=== PATIENT | male | born 1950 | race Hispanic/Latino ===

== ENCOUNTER 2018-08-23 06:07 | Observation (INO) | payer OTHER, MEDICARE ==
[2018-08-18 11:37] VITALS: BMI 31.5
[2018-08-23 07:03] LABS: BASO # 0.1 K/uL (0.0-0.2); BASO % 0.5 % (0.0-2.0); EOS # 0.2 K/uL (0.0-0.7); EOS % 1.5 % (0.0-4.0); HEMOGLOBIN 14.1 g/dL (12.0-18.0); LYMPH # 1.8 K/uL (1.0-4.3); LYMPH % 16.2 % (20.0-40.0); MEAN CELL VOLUME 94.1 fl (80.0-94.0); MEAN CORPUSCULAR HEMOGLOBIN 31.6 pg (27.0-31.0); MEAN CORPUSCULAR HGB CONC 33.6 g/dL (33.0-37.0); MONO # 0.8 K/uL (0.0-0.8); MONO % 7.3 % (0.0-10.0); NEUT # 8.3 K/uL (1.8-7.0); NEUT % 74.5 % (50.0-75.0); RBC 4.46 Mil/uL (4.40-5.90); RED CELL DISTRIBUTION WIDTH 14.1 % (11.5-14.5); WHITE BLOOD COUNT 11.2 K/uL (4.8-10.8)
[2018-08-23] MEDS ORDERED: Lactated Ringer's 1,000 ML IV ONE ×3 (07:20→14:00)
[2018-08-23] MEDS ORDERED: Rocuronium 10 mg/ml (5 ml) ONE ×2 (07:22→10:20)
[2018-08-23] MEDS ORDERED: Propofol 10 mg/ml Inj (20 ML) ONE ×10 (07:22→14:04)
[2018-08-23] MEDS ORDERED: Etomidate 20 mg/10ml Inj IV ONE (07:22)
[2018-08-23] MEDS ORDERED: Succinylcholine 200 mg/10 ml Inj IV ONE (07:22)
[2018-08-23] MEDS ORDERED: Lidocaine 4% (Laryng-O-Jet) Kit MM ONE (07:22)
[2018-08-23] MEDS ORDERED: Remifentanil 2 MG PDS IV ONE (07:33)
[2018-08-23] MEDS ORDERED: Phenylephrine 10 mg/ml Inj ONE (07:44)
[2018-08-23] MEDS ORDERED: methylPREDNISolone Depo 80 mg/ml Inj ONE (08:19)
[2018-08-23] MEDS ORDERED: Lidocaine 1% Inj (20ml) ONE (08:20)
[2018-08-23] MEDS ORDERED: Liquid Adhesive TOP ONE (08:20)
[2018-08-23] MEDS ORDERED: Absorbable Gelatin Sponge Size 12-7 ONE (08:20)
[2018-08-23] MEDS ORDERED: Bupivacaine HCl 0.25% PF (30 ml) Inj ONE (08:21)
[2018-08-23] MEDS ORDERED: Midazolam 2 MG/2 ML VIAL ONE (08:56)
[2018-08-23] MEDS ORDERED: Ketamine 50 mg/ml Inj (10 ml) ONE (08:56)
[2018-08-23] MEDS ORDERED: ePHEDrine 50 mg/ml Inj ONE (09:34)
[2018-08-23] MEDS ORDERED: Dexamethasone 4 mg/1 ml ONE (10:07)
[2018-08-23] MEDS ORDERED: Vancomycin 1 g Inj IVPB ONE ×2 (10:22→14:00)
[2018-08-23] MEDS ORDERED: Lactated Ringer's 500 ML IV ONE (11:45)
[2018-08-23] MEDS ORDERED: ceFAZolin IV 1 gm in Dextrose 1 GM/50 ML BAG IVPB ONE (12:55)
[2018-08-23] MEDS ORDERED: cefOXitin IV 1 gm in Dextrose 0 GM/0 ML BAG IVPB ONE (12:55)
[2018-08-23 13:33] LABS: VENOUS BLOOD GAS BASE EXCESS -0.2 mmol/L (0.0-2.0); VENOUS BLOOD GAS PCO2 44 mmHg (40-60); VENOUS BLOOD GAS PO2 252 mm/Hg (30-55); VENOUS BLOOD PH 7.37 (7.32-7.43)
[2018-08-23 13:59] LABS: ABG ALLEN TEST YES; ARTERIAL BLOOD GAS HCO3 24.5 mmol/L (21-28); ARTERIAL BLOOD GAS HEMOGLOBIN 11.6 g/dL (11.7-17.4); ARTERIAL BLOOD GAS O2 CAPACITY 16.4 mL/dL (16-24); ARTERIAL BLOOD GAS O2 CONTENT 15.4 ML/dL (15-23); ARTERIAL BLOOD GAS O2 SAT 93.8 % (95-98); ARTERIAL BLOOD GAS PCO2 46 mm/Hg (35-45); ARTERIAL BLOOD GAS PH 7.35 (7.35-7.45); ARTERIAL BLOOD GAS PO2 73 mm/Hg (80-100); ARTERIAL BLOOD GAS TCO2 26.8 mmol/L (22-28)
[2018-08-23] MEDS ORDERED: Absorbable Gelatin Sponge Size 12-7 TP ONE (14:20)
[2018-08-23] MEDS ORDERED: HYDROmorphone 0.5 mg/0.5 ml ISec ONE (15:20)
--- NOTE | 2018-08-23 15:58 | RAD ---
Date of service: 08/23/2018 PROCEDURE: Fluoroscopic assistance in excess of 1 hour. HISTORY: LUMBAR COMPARISON: None TECHNIQUE: Standard protocol for this study/examination. FINDINGS: Total fluoroscopic time (continuous mode) utilized during the procedure 10.8 (seconds). Total exam DLP: 5.63 (mGy). IMPRESSION: Submitted images from the current procedure: 3.0
[2018-08-23] MEDS ORDERED: Labetalol 5 mg/ml Inj 20ML IVP STA (16:00)
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
[2018-08-23] MEDS: Lactated Ringer's 1,000 ML IV SCH (17:00)
[2018-08-23] MEDS ORDERED: Dextrose 50% SYRINGE Inj (50 ml) IV PRN (18:35)
[2018-08-23] MEDS ORDERED: Glucagon Recombinant 1 mg Inj IM PRN (18:35)
[2018-08-23] MEDS: ceFAZolin 2 GM in Sodium Chloride 0.9% 100 ML IVPB SCH (21:40)
[2018-08-23] MEDS: Insulin Lispro (humaLOG) 100 Units/ml Inj SC SCH (21:58)
[2018-08-24] MEDS: ceFAZolin 2 GM in Sodium Chloride 0.9% 100 ML IVPB SCH (00:57)
[2018-08-24 05:56] LABS: ALB/GLOB RATIO 1.2 (1.0-2.1); ALBUMIN 3.2 g/dL (3.5-5.0); ALT/SGPT 57 U/L (21-72); AST/SGOT 107 U/L (17-59); BLOOD UREA NITROGEN 21 mg/dl (9-20); CALCIUM 8.8 mg/dL (8.4-10.2); GFR NON-AFRICAN AMERICAN > 60
[2018-08-24 06:07] LABS: BASO % 0.1 % (0.0-2.0); HEMOGLOBIN 11.2 g/dL (12.0-18.0); LYMPH # 1.5 K/uL (1.0-4.3); LYMPH % 10.6 % (20.0-40.0); MEAN CELL VOLUME 94.2 fl (80.0-94.0); MEAN CORPUSCULAR HEMOGLOBIN 31.2 pg (27.0-31.0); MEAN CORPUSCULAR HGB CONC 33.1 g/dL (33.0-37.0); MEAN PLATELET VOLUME 9.4 fl (7.2-11.7); MONO % 7.4 % (0.0-10.0); NEUT # 11.4 K/uL (1.8-7.0); NEUT % 81.9 % (50.0-75.0); RBC 3.59 Mil/uL (4.40-5.90); RED CELL DISTRIBUTION WIDTH 14.2 % (11.5-14.5)
[2018-08-24] MEDS: Lactated Ringer's 1,000 ML IV SCH (06:07)
[2018-08-24] MEDS: Insulin Lispro (humaLOG) 100 Units/ml Inj SC SCH ×4 (08:12→21:49)
[2018-08-24] MEDS: Metoprolol Succinate 100 mg XL Tab PO SCH (08:19)
[2018-08-24] MEDS: HCTZ/Losartan 12.5/50 Tab PO SCH (08:19)
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
--- NOTE | 2018-08-24 09:34 | CP.PCM.PN ---
<Frances Nguyen - Last Filed: 08/24/18 13:40> Subjective - Date & Time of Evaluation Date of Evaluation: 08/24/18 Time of Evaluation: 09:00 - Subjective Subjective: No acute overnight events. Pt is POD #1 tolerated procedure well. Pt has post op pain controlled with pain medications. Denies fevers, chills, nausea, vomiting, diarrhea, constipation, dysuria, SOB, or chest pain. While seen in PACU yesterday the patients daughter stated he was on coumadin, the patient also stated he was on coumadin this morning however after calling his pharmacy they confirmed he never filled coumadin in their records which extended back to 2016. They confirmed he is on plavix. After speaking with the pt again this afternoon he stated he was confused before and confirmed he is not on coumadin. Objective - Vital Signs/Intake and Output Vital Signs (last 24 hours): Temp Pulse Resp BP Pulse Ox 97.4 F L 83 20 131/69 95 08/24/18 08:29 08/24/18 08:29 08/24/18 08:29 08/24/18 08:29 08/24/18 08:29 - Medications Medications: Current Medications Atorvastatin Calcium (Lipitor) 80 mg PO DAILY [facility] Last Admin: 08/24/18 08:20 Dose: 80 mg Dextrose (Dextrose 50% Inj) 0 ml IV STAT PRN; Protocol PRN Reason: Hypoglycemia Protocol Dextrose (Glutose 15) 0 gm PO ONCE PRN; Protocol PRN Reason: Hypoglycemia Protocol Glucagon (Glucagen Diagnostic Kit) 0 mg IM STAT PRN; Protocol PRN Reason: Hypoglycemia Protocol HCTZ/Losartan Potassium (Hyzaar 12.5 Mg-50 Mg) 1 tab PO DAILY [facility] Last Admin: 08/24/18 08:19 Dose: 1 tab Hydromorphone HCl (Dilaudid) 0.5 mg IVP Q6 PRN PRN Reason: Pain, moderate (4-7) Last Admin: 08/24/18 08:17 Dose: 0.5 mg Acetaminophen (Ofirmev) 100 mls @ 400 mls/hr IVPB Q6H [facility]; Protocol Stop: 08/24/18 12:31 Last Admin: 08/24/18 05:53 Dose: 400 mls/hr Lactated Ringer's (Lactated Ringer's) 1,000 mls @ 75 mls/hr IV .[id number] [facility] Last Admin: 08/24/18 06:07 Dose: 75 mls/hr Insulin Human Lispro (Humalog) 0 units SC ACHS [facility]; Protocol Last Admin: 08/24/18 08:12 Dose: Not Given Metoprolol Succinate (Toprol Xl) 100 mg PO DAILY [facility] Last Admin: 08/24/18 08:19 Dose: 100 mg Ondansetron HCl (Zofran Inj) 4 mg IVP Q6 PRN PRN Reason: Nausea/Vomiting - Labs Labs: 08/24/18 04:20 08/24/18 04:20 - Constitutional Appears: Non-toxic, No Acute Distress - Head Exam Head Exam: ATRAUMATIC, NORMAL INSPECTION, NORMOCEPHALIC - Eye Exam Eye Exam: EOMI, Normal appearance - ENT Exam ENT Exam: Mucous Membranes Moist - Respiratory Exam Respiratory Exam: Clear to Ausculation Bilateral, NORMAL BREATHING PATTERN - Cardiovascular Exam Cardiovascular Exam: RRR, +S1, +S2 - GI/Abdominal Exam GI & Abdominal Exam: Soft, Normal Bowel Sounds - Extremities Exam Extremities Exam: Normal Inspection - Neurological Exam Neurological Exam: Alert, Awake, Oriented x3 Assessment and Plan - Assessment and Plan (Free Text) Assessment: Pt is a 68 yo M with a PMHx of CAD s/p 3 stents 2012, MIx3- 2011 last one, IDDM, HLD, HTN, admitted for lumbar spine spondylolisthesis. Pt seen after surgery s/p posterior decompression of L3-4, L4-5, and fusion with intra operative spinal c ord monitoring Lumbar spine spondylolisthesis -s/p posterior decompression of L3-4, L4-5, and fusion with intra operative spinal cord monitoring POD #1 -Regular diet -Pain control- Dilaudid -IVF LR @ 75, ABG PCO2-46 -Nausea-Zofran -PT pending eval -Awaiting lumbar brace LSO from outside vendor- Dr. Humphreys's PA(Dr. Garg) will be in contact vendor -F/u CMP, CBC in AM CAD s/p 3 stents -chronic -Pt on plavix and aspirin -Consult Cardiology- Dr. Miller- (aspirin and Plavix may be renewed 3 days postoperatively, as recommended by his surgeon) DM -chronic -SSI -Hypoglycemic protocol -Diabetic diet HTN chronic -c/w metoprolol, Losartan/HCTZ HLD chronic -c/w lipitor DVT PPx -SCD's Code Status -Full code <Nadia Alvarado - Last Filed: 08/25/18 17:27> Objective - Vital Signs/Intake and Output Vital Signs (last 24 hours): Temp Pulse Resp BP Pulse Ox 99.2 F 85 20 148/79 92 L 08/25/18 15:49 08/25/18 15:49 08/25/18 15:49 08/25/18 15:49 08/25/18 15:49 - Medications Medications: Current Medications Atorvastatin Calcium (Lipitor) 80 mg PO DAILY [facility] Last Admin: 08/25/18 09:11 Dose: 80 mg Cyclobenzaprine HCl (Flexeril) 5 mg PO Q8 [facility] Last Admin: 08/25/18 16:50 Dose: 5 mg Dextrose (Dextrose 50% Inj) 0 ml IV STAT PRN; Protocol PRN Reason: Hypoglycemia Protocol Dextrose (Glutose 15) 0 gm PO ONCE PRN; Protocol PRN Reason: Hypoglycemia Protocol Docusate Sodium (Colace) 100 mg PO BID [facility] Last Admin: 08/25/18 16:56 Dose: 100 mg Enoxaparin Sodium (Lovenox) 40 mg SC DAILY [facility]; Protocol Last Admin: 08/25/18 09:05 Dose: 40 mg Glucagon (Glucagen Diagnostic Kit) 0 mg IM STAT PRN; Protocol PRN Reason: Hypoglycemia Protocol HCTZ/Losartan Potassium (Hyzaar 12.5 Mg-50 Mg) 1 tab PO DAILY [facility] Last Admin: 08/25/18 09:13 Dose: 1 tab Insulin Human Lispro (Humalog) 0 units SC [facility]; Protocol Last Admin: 08/25/18 16:52 Dose: 4 units Lactulose (Enulose) 10 gm PO DAILY PRN PRN Reason: Constipation Last Admin: 08/25/18 10:35 Dose: 10 gm Metformin HCl (Glucophage) 1,000 mg PO BID [facility] Metoprolol Succinate (Toprol Xl) 100 mg PO DAILY [facility] Last Admin: 08/25/18 09:13 Dose: 100 mg Ondansetron HCl (Zofran Inj) 4 mg IVP Q6 PRN PRN Reason: Nausea/Vomiting Oxycodone/Acetaminophen (Percocet 5/325 Mg Tab) 1 tab PO Q4 PRN PRN Reason: Pain, moderate (4-7) Stop: 08/28/18 09:58 Last Admin: 08/25/18 10:34 Dose: 1 tab Oxycodone/Acetaminophen (Percocet 5/325 Mg Tab) 2 tab PO Q4 PRN PRN Reason: Pain, severe (8-10) Stop: 08/28/18 10:01 - Labs Labs: 08/25/18 05:10 08/25/18 05:10 Attending/Attestation - Attestation I have personally seen and examined this patient.: Yes I have fully participated in the care of the patient.: Yes I have reviewed all pertinent clinical information, including history, physical exam and plan: Yes Notes (Text): 08/25/18 17:27 Seen examined and discussed with resident. Agree with findings and plan as above. Patient pain uncontrolled and requiring AISLINN. NO coumadin. Patient may resume ASA Plavix TOMORROW. Discharge plnning in progress.
--- NOTE | 2018-08-24 15:52 | CARD ---
APPROVED REPORT Date of service: 08/24/2018 EKG Measurement Heart [id number] <Conclusion> Normal sinus rhythm Normal ECG
[2018-08-24] MEDS ORDERED: ceFAZolin 2 GM in Sodium Chloride 0.9% 100 ML IVPB SCH (21:00)
[2018-08-24] MEDS: HYDROmorphone 0.5 mg/0.5 ml ISec IVP PRN (21:48)
[2018-08-25] MEDS: HYDROmorphone 0.5 mg/0.5 ml ISec IVP PRN (04:22)
[2018-08-25 05:46] LABS: BASO % 0.1 % (0.0-2.0); EOS % 0.1 % (0.0-4.0); HEMOGLOBIN 11.4 g/dL (12.0-18.0); LYMPH % 6.2 % (20.0-40.0); MEAN CELL VOLUME 93.3 fl (80.0-94.0); MEAN CORPUSCULAR HGB CONC 33.2 g/dL (33.0-37.0); MEAN PLATELET VOLUME 9.3 fl (7.2-11.7); MONO # 1.4 K/uL (0.0-0.8); NEUT # 13.3 K/uL (1.8-7.0); NEUT % 84.6 % (50.0-75.0); PLATELET COUNT 179 K/uL (130-400); RBC 3.68 Mil/uL (4.40-5.90); RED CELL DISTRIBUTION WIDTH 13.5 % (11.5-14.5); WHITE BLOOD COUNT 15.7 K/uL (4.8-10.8)
[2018-08-25 05:52] LABS: ALB/GLOB RATIO 1.1 (1.0-2.1); ALBUMIN 3.3 g/dL (3.5-5.0); ALT/SGPT 45 U/L (21-72); AST/SGOT 59 U/L (17-59); BLOOD UREA NITROGEN 16 mg/dl (9-20); CALCIUM 9.1 mg/dL (8.4-10.2); GFR NON-AFRICAN AMERICAN > 60
[2018-08-25 07:35] LABS: LYMPHOCYTE 6 % (20-50); MONOCYTE 8 % (0-10); NEUTROPHIL 86 % (42-75); PLATELET ESTIMATE NORMAL (NORMAL); TOTAL CELLS COUNTED 100
[2018-08-25 07:36] LABS: ANISOCYTOSIS SLIGHT; LARGE PLATELETS PRESENT; OVALOCYTES MODERATE; TEARDROP CELLS SLIGHT
[2018-08-25] MEDS: Insulin Lispro (humaLOG) 100 Units/ml Inj SC SCH ×4 (08:14→21:33)
[2018-08-25] MEDS: Enoxaparin 40 mg Syringe SC SCH (09:05)
[2018-08-25] MEDS: Metoprolol Succinate 100 mg XL Tab PO SCH (09:13)
[2018-08-25] MEDS: HCTZ/Losartan 12.5/50 Tab PO SCH (09:13)
[2018-08-25] MEDS ORDERED: Oxycodone/Acetaminophen 5/325 mg Tab PO PRN ×3 (09:57→18:55)
--- NOTE | 2018-08-25 10:10 | CP.PCM.PN ---
<Frances Nguyen - Last Filed: 08/25/18 14:16> Subjective - Date & Time of Evaluation Date of Evaluation: 08/25/18 Time of Evaluation: 09:00 - Subjective Subjective: No acute overnight events. Pt is POD #2 and he has post op pain overnight. Pt has mild cough with some sputum production, he has not had a bowel movement yet. Denies fevers, chills, nausea, vomiting, dysuria, SOB or chest pain. Objective - Vital Signs/Intake and Output Vital Signs (last 24 hours): Temp Pulse Resp BP Pulse Ox 98.8 F 80 20 175/79 H 93 L 08/25/18 08:27 08/25/18 09:13 08/25/18 08:27 08/25/18 09:13 08/25/18 08:27 - Medications Medications: Current Medications Atorvastatin Calcium (Lipitor) 80 mg PO DAILY [facility] Last Admin: 08/25/18 09:11 Dose: 80 mg Cyclobenzaprine HCl (Flexeril) 10 mg PO Q8 [facility] Dextrose (Dextrose 50% Inj) 0 ml IV STAT PRN; Protocol PRN Reason: Hypoglycemia Protocol Dextrose (Glutose 15) 0 gm PO ONCE PRN; Protocol PRN Reason: Hypoglycemia Protocol Docusate Sodium (Colace) 100 mg PO BID [facility] Enoxaparin Sodium (Lovenox) 40 mg SC DAILY [facility]; Protocol Last Admin: 08/25/18 09:05 Dose: 40 mg Glucagon (Glucagen Diagnostic Kit) 0 mg IM STAT PRN; Protocol PRN Reason: Hypoglycemia Protocol HCTZ/Losartan Potassium (Hyzaar 12.5 Mg-50 Mg) 1 tab PO DAILY [facility] Last Admin: 08/25/18 09:13 Dose: 1 tab Insulin Human Lispro (Humalog) 0 units SC ACHS [facility]; Protocol Last Admin: 08/25/18 08:14 Dose: 2 units Lactulose (Enulose) 10 gm PO DAILY PRN PRN Reason: Constipation Metoprolol Succinate (Toprol Xl) 100 mg PO DAILY [facility] Last Admin: 08/25/18 09:13 Dose: 100 mg Ondansetron HCl (Zofran Inj) 4 mg IVP Q6 PRN PRN Reason: Nausea/Vomiting Oxycodone/Acetaminophen (Percocet 5/325 Mg Tab) 1 tab PO Q4 PRN PRN Reason: Pain, moderate (4-7) Stop: 08/28/18 09:58 Oxycodone/Acetaminophen (Percocet 5/325 Mg Tab) 2 tab PO Q4 PRN PRN Reason: Pain, severe (8-10) Stop: 08/28/18 10:01 - Labs Labs: 08/25/18 05:10 08/25/18 05:10 - Constitutional Appears: Non-toxic, No Acute Distress - Head Exam Head Exam: ATRAUMATIC, NORMAL INSPECTION, NORMOCEPHALIC - Eye Exam Eye Exam: EOMI - ENT Exam ENT Exam: Mucous Membranes Moist - Respiratory Exam Respiratory Exam: Clear to Ausculation Bilateral, NORMAL BREATHING PATTERN - Cardiovascular Exam Cardiovascular Exam: RRR, +S1, +S2 - GI/Abdominal Exam GI & Abdominal Exam: Soft, Normal Bowel Sounds - Extremities Exam Extremities Exam: Normal Inspection - Back Exam Additional comments: Wearing lumbar brace - Neurological Exam Neurological Exam: Alert, Awake, Oriented x3 Assessment and Plan - Assessment and Plan (Free Text) Assessment: Pt is a 68 yo M with a PMHx of CAD s/p 3 stents 2012, MIx3- 2011 last one, IDDM, HLD, HTN, admitted for lumbar spine spondylolisthesis. Pt seen after surgery s/p posterior decompression of L3-4, L4-5, and fusion with intra operative spinal cord monitoring Lumbar spine spondylolisthesis -s/p posterior decompression of L3-4, L4-5, and fusion with intra operative spinal cord monitoring POD #2 -Diabetic diet -Pain control-Started Percocet 5/325mg (1tab Q4 PRN-moderate, 2tab Q4 PRN- severe), Flexeril 5mg PO Q8h -Started Incentive Spirometry -Started Colace/lactulose -Nausea-Zofran -PT with LSO lumbar brace- recommendations-subacute rehab -F/u CMP, CBC in AM CAD s/p 3 stents -chronic -Pt on plavix and aspirin -Consult Cardiology- Dr. Miller-recommendations appreciated -Resume Aspirin and Plavix tomorrow POD 3 DM -chronic -SSI, Metformin 1000mg BID -Hypoglycemic protocol -Diabetic diet HTN chronic -c/w metoprolol, Losartan/HCTZ HLD chronic -c/w lipitor DVT PPx -Lovenox 40mg SC Code Status -Full code <Christiano,Nadia K - Last Filed: 08/25/18 17:40> Objective - Vital Signs/Intake and Output Vital Signs (last 24 hours): Temp Pulse Resp BP Pulse Ox 99.2 F 85 20 148/79 92 L 08/25/18 15:49 08/25/18 15:49 08/25/18 15:49 08/25/18 15:49 08/25/18 15:49 - Medications Medications: Current Medications Atorvastatin Calcium (Lipitor) 80 mg PO DAILY [facility] Last Admin: 08/25/18 09:11 Dose: 80 mg Cyclobenzaprine HCl (Flexeril) 5 mg PO Q8 [facility] Last Admin: 08/25/18 16:50 Dose: 5 mg Dextrose (Dextrose 50% Inj) 0 ml IV STAT PRN; Protocol PRN Reason: Hypoglycemia Protocol Dextrose (Glutose 15) 0 gm PO ONCE PRN; Protocol PRN Reason: Hypoglycemia Protocol Docusate Sodium (Colace) 100 mg PO BID [facility] Last Admin: 08/25/18 16:56 Dose: 100 mg Enoxaparin Sodium (Lovenox) 40 mg SC DAILY [facility]; Protocol Last Admin: 08/25/18 09:05 Dose: 40 mg Glucagon (Glucagen Diagnostic Kit) 0 mg IM STAT PRN; Protocol PRN Reason: Hypoglycemia Protocol HCTZ/Losartan Potassium (Hyzaar 12.5 Mg-50 Mg) 1 tab PO DAILY [facility] Last Admin: 08/25/18 09:13 Dose: 1 tab Insulin Human Lispro (Humalog) 0 units SC ACHS [facility]; Protocol Last Admin: 08/25/18 16:52 Dose: 4 units Lactulose (Enulose) 10 gm PO DAILY PRN PRN Reason: Constipation Last Admin: 08/25/18 10:35 Dose: 10 gm Metformin HCl (Glucophage) 1,000 mg PO BID [facility] Metoprolol Succinate (Toprol Xl) 100 mg PO DAILY [facility] Last Admin: 08/25/18 09:13 Dose: 100 mg Ondansetron HCl (Zofran Inj) 4 mg IVP Q6 PRN PRN Reason: Nausea/Vomiting Oxycodone/Acetaminophen (Percocet 5/325 Mg Tab) 1 tab PO Q4 PRN PRN Reason: Pain, moderate (4-7) Stop: 08/28/18 09:58 Last Admin: 10/31/18 10:34 Dose: 1 tab Oxycodone/Acetaminophen (Percocet 5/325 Mg Tab) 2 tab PO Q4 PRN PRN Reason: Pain, severe (8-10) Stop: 08/28/18 10:01 - Labs Labs: 08/25/18 05:10 08/25/18 05:10 Attending/Attestation - Attestation I have personally seen and examined this patient.: Yes I have fully participated in the care of the patient.: Yes I have reviewed all pertinent clinical information, including history, physical exam and plan: Yes Notes (Text): 08/25/18 17:40 Seen examined and discussed with resident. Agree with findings and plan as above. Patient for AISLINN? received brace.
--- NOTE | 2018-08-25 18:47 | RAD ---
Date of service: 08/25/2018 PROCEDURE: CHEST RADIOGRAPH, 1 VIEW HISTORY: Cough COMPARISON: None available. FINDINGS: LUNGS: Low lung volumes. Bibasilar atelectasis. PLEURA: No pneumothorax or pleural fluid seen. CARDIOVASCULAR: Aortic atherosclerotic calcifications. Cardiomediastinal silhouette within normal limits. OSSEOUS STRUCTURES: Degenerative changes. Partially imaged lumbar spinal fusion hardware. VISUALIZED UPPER ABDOMEN: Normal. OTHER FINDINGS: None. IMPRESSION: No active disease.
[2018-08-26 05:45] LABS: BASO % 0.2 % (0.0-2.0); EOS % 0.2 % (0.0-4.0); HEMOGLOBIN 11.2 g/dL (12.0-18.0); LYMPH # 1.4 K/uL (1.0-4.3); LYMPH % 9.6 % (20.0-40.0); MEAN CELL VOLUME 93.5 fl (80.0-94.0); MEAN CORPUSCULAR HGB CONC 33.1 g/dL (33.0-37.0); MONO # 1.5 K/uL (0.0-0.8); MONO % 9.8 % (0.0-10.0); NEUT % 80.2 % (50.0-75.0); RBC 3.61 Mil/uL (4.40-5.90); RED CELL DISTRIBUTION WIDTH 13.8 % (11.5-14.5)
[2018-08-26 06:07] LABS: ALBUMIN 3.4 g/dL (3.5-5.0); ALT/SGPT 33 U/L (21-72); AST/SGOT 37 U/L (17-59); BLOOD UREA NITROGEN 25 mg/dl (9-20); CALCIUM 9.1 mg/dL (8.4-10.2); GFR NON-AFRICAN AMERICAN > 60
[2018-08-26] MEDS: Insulin Lispro (humaLOG) 100 Units/ml Inj SC SCH ×2 (06:35→13:12)
[2018-08-26] MEDS: HCTZ/Losartan 12.5/50 Tab PO SCH (08:42)
[2018-08-26] MEDS: Enoxaparin 40 mg Syringe SC SCH (08:43)
[2018-08-26] MEDS: Metoprolol Succinate 100 mg XL Tab PO SCH (08:44)
[2018-08-26] MEDS ORDERED: Lactulose 10 gm/15 ml Syrup PO PRN (10:45)
[2018-08-26 12:23] VITALS: BP 103/61; PULSE 86; RESP 18; TEMP 99; O2SAT 96
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
[2018-08-27] MEDS ORDERED: Ergocalciferol 50,000 Intl Units Cap PO SCH (09:00)
[2018-08-27] MEDS ORDERED: INSULIN GLARGINE SQ SCH ×2 (09:00)
== END 2018-08-26 15:40 ==
LOC: H.OPSURG 06:07 → H.TEL 16:23
PROVIDERS: ADMIT Student in an Organized Health Care Education/Training Program; ATTEND Student in an Organized Health Care Education/Training Program
DX: M47.26 Other spondylosis with radiculopathy, lumbar region (principal); M43.16 Spondylolisthesis, lumbar region; I25.10 Atherosclerotic heart disease of native coronary artery without angina pectoris; Z95.5 Presence of coronary angioplasty implant and graft; I25.2 Old myocardial infarction; E78.5 Hyperlipidemia, unspecified; I10 Essential (primary) hypertension; Z79.4 Long term (current) use of insulin; E11.319 Type 2 diabetes mellitus with unspecified diabetic retinopathy without macular edema; E66.3 Overweight; Z79.02 Long term (current) use of antithrombotics/antiplatelets; D72.829 Elevated white blood cell count, unspecified; D62 Acute posthemorrhagic anemia; E11.65 Type 2 diabetes mellitus with hyperglycemia; Z79.82 Long term (current) use of aspirin; Z96.649 Presence of unspecified artificial hip joint; M51.16 Intervertebral disc disorders with radiculopathy, lumbar region; M48.061 Spinal stenosis, lumbar region without neurogenic claudication
CPT/HCPCS: 20930; 22612; 22614; 36415; 36600; 71045; 80053; 82803; 82948; 85025; 86850; 86900; 86920; 93005; 96372; 96374; 96375; 96376; 97116; 97162; 97530; C1713; G0378; G8978; G8979; J0131; J0330; J0690; J1100; J1170; J1650; J2001; J2250; J2370; J2405; J2704; J3010; J7030; J7120

== ENCOUNTER 2018-08-26 14:50 | Inpatient (IN) | payer OTHER, MEDICARE ==
[2018-08-26 16:12] VITALS: BMI 30.7
[2018-08-26] MEDS ORDERED: POLYETHYLENE GLYCOL 3350 17 GM/Dose PACKET PO ONE (21:05)
[2018-08-26] MEDS: Insulin Lispro (humaLOG) 100 Units/ml Inj SC SCH (23:20)
[2018-08-27] MEDS: Insulin Detemir 100 Units/ml Inj SC SCH ×3 (00:39→21:33)
[2018-08-27] MEDS: Insulin Lispro (humaLOG) 100 Units/ml Inj SC SCH ×4 (07:12→22:36)
[2018-08-27] MEDS ORDERED: INSULIN GLARGINE SQ SCH ×2 (09:00)
[2018-08-27] MEDS: Enoxaparin 40 mg Syringe SC SCH (09:04)
[2018-08-27] MEDS: HCTZ/Losartan 12.5/50 Tab PO SCH (09:04)
[2018-08-27] MEDS: Ergocalciferol 50,000 Intl Units Cap PO SCH (09:04)
[2018-08-27] MEDS: Metoprolol Succinate 100 mg XL Tab PO SCH (09:05)
[2018-08-27] MEDS: Pantoprazole 40 mg EC Tab PO SCH (09:07)
[2018-08-27] MEDS: Oxycodone/Acetaminophen 5/325 mg Tab PO PRN ×3 (11:35→23:08)
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
--- NOTE | 2018-08-27 18:19 | RAD ---
Date of service: 08/27/2018 PROCEDURE: CHEST RADIOGRAPH, 1 VIEW HISTORY: cough COMPARISON: Chest radiograph dated 08/25/2018. FINDINGS: LUNGS: Clear. PLEURA: No pneumothorax or pleural fluid seen. CARDIOVASCULAR: Aortic atherosclerotic calcifications. Cardiomediastinal silhouette within normal limits. OSSEOUS STRUCTURES: Unchanged. VISUALIZED UPPER ABDOMEN: Normal. OTHER FINDINGS: None. IMPRESSION: No active disease.
[2018-08-28] MEDS: Oxycodone/Acetaminophen 5/325 mg Tab PO PRN ×4 (05:50→21:34)
[2018-08-28 06:37] LABS: URINE BACTERIA RARE (<OCC); URINE BILIRUBIN NEGATIVE (NEGATIVE); URINE BLOOD NEGATIVE (NEGATIVE); URINE CLARITY CLEAR (Clear); URINE COLOR YELLOW (YELLOW); URINE GLUCOSE (UA) NEG (Normal); URINE HYALINE CAST 0-2 /hpf (0-2); URINE LEUKOCYTE ESTERASE NEG Leu/uL (Negative); URINE PROTEIN NEGATIVE (NEGATIVE); URINE UROBILINOGEN 0.2-1.0 mg/dL (0.2-1.0)
[2018-08-28] MEDS: Insulin Lispro (humaLOG) 100 Units/ml Inj SC SCH ×4 (06:50→22:22)
[2018-08-28] MEDS: Insulin Detemir 100 Units/ml Inj SC SCH ×2 (07:30→21:38)
[2018-08-28] MEDS: Enoxaparin 40 mg Syringe SC SCH (08:16)
[2018-08-28] MEDS: Ergocalciferol 50,000 Intl Units Cap PO SCH (08:16)
[2018-08-28] MEDS: Metoprolol Succinate 100 mg XL Tab PO SCH (08:17)
[2018-08-28] MEDS: HCTZ/Losartan 12.5/50 Tab PO SCH (08:18)
[2018-08-28] MEDS: Pantoprazole 40 mg EC Tab PO SCH (11:29)
[2018-08-29] MEDS: Oxycodone/Acetaminophen 5/325 mg Tab PO PRN ×4 (01:38→21:57)
[2018-08-29] MEDS: Insulin Lispro (humaLOG) 100 Units/ml Inj SC SCH ×4 (07:02→21:35)
[2018-08-29] MEDS: Insulin Detemir 100 Units/ml Inj SC SCH ×2 (07:46→21:41)
[2018-08-29] MEDS: Pantoprazole 40 mg EC Tab PO SCH (08:29)
[2018-08-29] MEDS: Metoprolol Succinate 100 mg XL Tab PO SCH (08:29)
[2018-08-29] MEDS: Ergocalciferol 50,000 Intl Units Cap PO SCH (08:29)
[2018-08-29] MEDS: HCTZ/Losartan 12.5/50 Tab PO SCH (08:30)
[2018-08-29] MEDS: Enoxaparin 40 mg Syringe SC SCH (08:30)
[2018-08-30] MEDS: Insulin Lispro (humaLOG) 100 Units/ml Inj SC SCH ×4 (07:00→21:54)
[2018-08-30] MEDS: Insulin Detemir 100 Units/ml Inj SC SCH ×2 (07:01→21:55)
[2018-08-30 08:14] VITALS: RESP 20
[2018-08-30] MEDS: Oxycodone/Acetaminophen 5/325 mg Tab PO PRN ×3 (08:16→20:52)
[2018-08-30] MEDS: HCTZ/Losartan 12.5/50 Tab PO SCH (08:17)
[2018-08-30] MEDS: Metoprolol Succinate 100 mg XL Tab PO SCH (08:17)
[2018-08-30] MEDS: Pantoprazole 40 mg EC Tab PO SCH (08:17)
[2018-08-30] MEDS: Ergocalciferol 50,000 Intl Units Cap PO SCH (08:17)
[2018-08-30] MEDS: Enoxaparin 40 mg Syringe SC SCH (08:18)
[2018-08-30] MEDS: POLYETHYLENE GLYCOL 3350 17 GM/Dose PACKET PO PRN (23:20)
[2018-08-31] MEDS: Oxycodone/Acetaminophen 5/325 mg Tab PO PRN ×4 (03:26→21:27)
[2018-08-31] MEDS: Insulin Detemir 100 Units/ml Inj SC SCH ×2 (07:01→21:27)
[2018-08-31] MEDS: Enoxaparin 40 mg Syringe SC SCH (08:06)
[2018-08-31] MEDS: Ergocalciferol 50,000 Intl Units Cap PO SCH (08:08)
[2018-08-31] MEDS: Metoprolol Succinate 100 mg XL Tab PO SCH (08:09)
[2018-08-31] MEDS: HCTZ/Losartan 12.5/50 Tab PO SCH (08:10)
[2018-08-31] MEDS: POLYETHYLENE GLYCOL 3350 17 GM/Dose PACKET PO PRN (08:10)
[2018-08-31] MEDS: Pantoprazole 40 mg EC Tab PO SCH (08:11)
[2018-08-31] MEDS: Insulin Lispro (humaLOG) 100 Units/ml Inj SC SCH ×4 (08:12→21:24)
--- NOTE | 2018-08-31 09:36 | CP.PCM.CON ---
History of Present Illness - History of Present Illness History of Present Illness: The patient was seen at the request of the physician looking after the patient in transitional care unit. The patient has been recovering quite well from his recent surgery and participates in rehabilitation well. My recent note of mercury visit to the patient following his surgery was reviewed. The issue off the possibility that he was using Coumadin at home was reviewed with him again. The patient clearly indicates that he has never been put on warfarin. During his stay in the transitional care unit he has not experienced any anginal episodes or symptoms of congestive cardiac failure. On examination the patient was found sitting out of bed eating his breakfast and can carry on a conversation. He is alert awake coherent and afebrile. His a heart rate of 74 bpm regular and a blood pressure of 134/70 mmHg. His jugular venous pressure was not elevated. He had severe varicosities over both lower extremities and his pedal pulses were palpable. The apex was in the fifth space the first and second heart sounds were normal. There was a brief ejection systolic murmur in the aortic area with preserved second heart sound. There was no S3 gallop. There were no rales. His electro-cardial gram was reviewed. Impression: Status post recent surgery for spinal stenosis. Table coronary artery disease. Status post coronary stenting. History of prior myocardial infarction. Hypertension diabetes mellitus. Severe varicosities both lower extremities. Diabetic retinopathy. The patient is stable from cardiovascular point of view. He does not require warfarin therapy. Past Patient History - Infectious Disease Hx of Infectious Diseases: None - Past Medical History & Family History Past Medical History?: Yes - Past Social History Smoking Status: Never Smoked Alcohol: None - CARDIAC Hx Cardiac Disorders: Yes Hx Heart Attack: Yes (2012) Hx Hypertension: Yes Other/Comment: 3 cardiac stents placed--2013 - PULMONARY Hx Respiratory Disorders: No - NEUROLOGICAL Hx Neurological Disorder: No - HEENT Hx HEENT Problems: No - RENAL Hx Chronic Kidney Disease: No - ENDOCRINE/METABOLIC Hx Endocrine Disorders: Yes Hx Diabetes Mellitus Type 2: Yes - HEMATOLOGICAL/ONCOLOGICAL Hx Blood Disorders: No Hx AIDS: No Hx Human Immunodeficiency Virus (HIV): No - INTEGUMENTARY Hx Dermatological Problems: No - MUSCULOSKELETAL/RHEUMATOLOGICAL Hx Musculoskeletal Disorders: Yes Hx Arthritis: Yes (joints) Hx Falls: No - GASTROINTESTINAL Hx Gastrointestinal Disorders: No - GENITOURINARY/GYNECOLOGICAL Hx Genitourinary Disorders: No - PSYCHIATRIC Hx Psychophysiologic Disorder: No - SURGICAL HISTORY Hx Surgeries: Yes Hx Appendectomy: Yes Hx Arthroscopy: Yes (right shoulder,bilateral knees) Hx Orthopedic Surgery: Yes (right total hip) - ANESTHESIA Hx Anesthesia: Yes Hx Anesthesia Reactions: No Meds Allergies/Adverse Reactions: Allergies Allergy/AdvReac Type Severity Reaction Status Date / Time No Known Allergies Allergy Verified 08/26/18 16:02 - Medications Medications: Current Medications Acetaminophen (Tylenol 325mg Tab) 650 mg PO Q6 PRN PRN Reason: Temperature Last Admin: 08/26/18 22:42 Dose: 650 mg Aspirin (Ecotrin) 81 mg PO DAILY [facility] Last Admin: 08/31/18 08:06 Dose: 81 mg Atorvastatin Calcium (Lipitor) 80 mg PO DAILY [facility] Last Admin: 08/31/18 08:10 Dose: 80 mg Clopidogrel Bisulfate (Plavix) 75 mg PO DAILY [facility] Last Admin: 08/31/18 08:07 Dose: 75 mg Docusate Sodium (Colace) 100 mg PO BID [facility] Last Admin: 08/31/18 08:10 Dose: 100 mg Enoxaparin Sodium (Lovenox) 40 mg SC DAILY [facility]; Protocol Last Admin: 08/31/18 08:06 Dose: 40 mg Ergocalciferol (Drisdol 50,000 Intl Units Cap) 1 cap PO DAILY [facility] Last Admin: 08/31/18 08:08 Dose: 1 cap HCTZ/Losartan Potassium (Hyzaar 12.5 Mg-50 Mg) 1 tab PO DAILY [facility] Last Admin: 08/31/18 08:10 Dose: 1 tab Insulin Detemir (Levemir) 29 units SC ACB [facility] Last Admin: 08/31/18 07:01 Dose: 29 units Insulin Detemir (Levemir) 33 units SC HS [facility] Last Admin: 08/30/18 21:55 Dose: 33 units Insulin Human Lispro (Humalog) 0 units SC ACHS [facility]; Protocol Last Admin: 08/31/18 08:12 Dose: Not Given Metformin HCl (Glucophage) 1,000 mg PO BID [facility] Last Admin: 08/31/18 08:08 Dose: 1,000 mg Metoprolol Succinate (Toprol Xl) 100 mg PO DAILY [facility] Last Admin: 08/31/18 08:09 Dose: 100 mg Oxycodone/Acetaminophen (Percocet 5/325 Mg Tab) 1 tab PO Q4 PRN PRN Reason: Pain, moderate (4-7) Stop: 09/01/18 21:39 Last Admin: 08/31/18 03:26 Dose: 1 tab Oxycodone/Acetaminophen (Percocet 5/325 Mg Tab) 2 tab PO Q6 PRN PRN Reason: Pain, severe (8-10) Stop: 09/01/18 21:41 Last Admin: 08/31/18 08:10 Dose: 2 tab Pantoprazole Sodium (Protonix Ec Tab) 40 mg PO DAILY [facility] Last Admin: 08/31/18 08:11 Dose: 40 mg Polyethylene Glycol (Miralax) 17 gm PO DAILY PRN PRN Reason: Constipation Last Admin: 08/31/18 08:10 Dose: 17 gm Results - Vital Signs Recent Vital Signs: Last Vital Signs Temp 97.7 F 08/31/18 08:13 Pulse 81 08/31/18 08:13 Resp 20 08/31/18 08:13 BP 127/56 L 08/31/18 08:13 Pulse Ox 97 08/31/18 08:13 - Labs Labs: Laboratory Results - last 24 hr 08/30/18 08/30/18 08/30/18 05:22 10:54 15:52 POC Glucose (mg/dL) 146 H 233 H 127 H 08/30/18 08/31/18 21:26 05:24 POC Glucose (mg/dL) 112 H 89
--- NOTE | 2018-08-31 18:44 | CARD ---
APPROVED REPORT Date of service: 08/31/2018 EKG Measurement Heart [id number] <Conclusion> Normal sinus rhythm Inferior infarct, age undetermined Abnormal ECG
[2018-09-01] MEDS: Insulin Lispro (humaLOG) 100 Units/ml Inj SC SCH (07:02)
[2018-09-01] MEDS: Insulin Detemir 100 Units/ml Inj SC SCH (07:05)
[2018-09-01 07:51] VITALS: BP 147/70; PULSE 87; TEMP 98.1; O2SAT 100
[2018-09-01] MEDS: Oxycodone/Acetaminophen 5/325 mg Tab PO PRN (08:07)
[2018-09-01] MEDS: Ergocalciferol 50,000 Intl Units Cap PO SCH (08:09)
[2018-09-01] MEDS: HCTZ/Losartan 12.5/50 Tab PO SCH (08:09)
[2018-09-01] MEDS: Enoxaparin 40 mg Syringe SC SCH (08:09)
[2018-09-01] MEDS: Pantoprazole 40 mg EC Tab PO SCH (08:10)
[2018-09-01] MEDS: Metoprolol Succinate 100 mg XL Tab PO SCH (08:10)
== END 2018-09-01 12:00 | disposition home or self-care (01) | DRG 561 ==
LOC: H.TCU 16:13
PROC: F07Z5ZZ Bed Mobility Treatment (ICD-10-PCS; principal; 2018-08-26)
PROC: F07Z9FZ Gait Training/Functional Ambulation Treatment using Assistive, Adaptive, Supportive or Protective Equipment (ICD-10-PCS; 2018-08-26)
PROC: F07Z8FZ Transfer Training Treatment using Assistive, Adaptive, Supportive or Protective Equipment (ICD-10-PCS; 2018-08-26)
PROC: F08Z1FZ Dressing Techniques Treatment using Assistive, Adaptive, Supportive or Protective Equipment (ICD-10-PCS; 2018-08-26)
PROC: F08Z0FZ Bathing/Showering Techniques Treatment using Assistive, Adaptive, Supportive or Protective Equipment (ICD-10-PCS; 2018-08-26)
PROC: F07L6GZ Therapeutic Exercise Treatment of Musculoskeletal System - Lower Back / Lower Extremity using Aerobic Endurance and Conditioning Equipment (ICD-10-PCS; 2018-08-26)
DX: Z47.89 Encounter for other orthopedic aftercare (principal); I25.10 Atherosclerotic heart disease of native coronary artery without angina pectoris; Z95.5 Presence of coronary angioplasty implant and graft; I10 Essential (primary) hypertension; E78.5 Hyperlipidemia, unspecified; Z79.02 Long term (current) use of antithrombotics/antiplatelets; Z79.82 Long term (current) use of aspirin; Z96.641 Presence of right artificial hip joint; Z79.4 Long term (current) use of insulin; I25.2 Old myocardial infarction; E11.319 Type 2 diabetes mellitus with unspecified diabetic retinopathy without macular edema; I83.93 Asymptomatic varicose veins of bilateral lower extremities; K59.00 Constipation, unspecified; E11.9 Type 2 diabetes mellitus without complications; E11.65 Type 2 diabetes mellitus with hyperglycemia